=== PATIENT | female | born 1990 | race Caucasian/White ===

== ENCOUNTER 2022-09-01 09:58 | Inpatient (IN) | payer BC ==
[2022-08-31 12:09] LABS: Hemoglobin 11.9 g/dL (12.0-15.5); Platelet Count 311 10x3/uL (150-450)
[2022-08-31 12:41] LABS: HBSAg Index 0.15 S/CO (0-0.99); Hep B Surf Ag Non-Reactive S/CO (NonReactive)
[2022-08-31 12:42] LABS: Syphilis Antibody Nonreactive (Nonreactive); Syphilis Antibody Index 0.03 S/CO (<1.00 Non-Reactive)
[2022-09-01] MEDS ORDERED: HYDROmorphone 2 MG/ML VIAL SLOW IVP PRN (10:22)
[2022-09-01] MEDS ORDERED: Meperidine HCl/PF 25 MG/ML VIAL SLOW IVP PRN (10:22)
[2022-09-01] MEDS ORDERED: Fentanyl 100 MCG/2 ML VIAL SLOW IVP PRN (10:22)
[2022-09-01] MEDS ORDERED: Ondansetron HCl/PF 4 MG/2 ML Vial IVP PRN (10:22)
[2022-09-01] MEDS ORDERED: Promethazine HCl 25 MG/ML VIAL IM PRN ×2 (10:23→10:24)
[2022-09-01] MEDS ORDERED: Moisturizing Cream (Eucerin) 113 GM JAR TOP PRN (10:23)
[2022-09-01] MEDS ORDERED: diphenhydrAMINE 50 MG/ML VIAL IVP PRN (10:23)
[2022-09-01] MEDS ORDERED: Ondansetron PF 4 MG/2 ML Vial IVP PRN ×2 (10:23→10:24)
[2022-09-01] MEDS ORDERED: Promethazine HCl 25 MG SUPP PR PRN (10:23)
[2022-09-01] MEDS ORDERED: Naloxone HCl 0.4 mg/ml Vial IV PRN (10:23)
[2022-09-01] MEDS ORDERED: Naloxone HCl 0.4 mg/ml Vial IVP PRN ×2 (10:23)
[2022-09-01] MEDS ORDERED: Diphenoxylate HCl/Atropine Tablet PO PRN ×2 (10:24)
[2022-09-01] MEDS ORDERED: Bicitra 30 ML UDCUP PO PRN (10:24)
[2022-09-01] MEDS ORDERED: NS w/ Oxytocin 30 units 500 ML IV SCH (10:24)
[2022-09-01] MEDS ORDERED: Acetaminophen 500 MG TAB PO PRN (10:24)
[2022-09-01] MEDS ORDERED: Tranexamic Acid 1,000 MG/10 ML VIAL IVP PRN (10:24)
[2022-09-01] MEDS ORDERED: Carboprost 250 MCG/ML AMP IM PRN (10:24)
[2022-09-01] MEDS ORDERED: hydrALAZINE 20 MG/ML VIAL SLOW IVP PRN ×2 (10:24→12:45)
[2022-09-01] MEDS ORDERED: Misoprostol 200 MCG TAB PR PRN (10:24)
[2022-09-01] MEDS ORDERED: Famotidine/PF 20 mg/2ml Vial SLOW IVP PRN (10:24)
[2022-09-01] MEDS ORDERED: CEFAZOLIN 2 GM in Sodium Chloride 0.9% 100 ML IVPB SCH (10:24)
[2022-09-01 10:29] VITALS: BMI 41.1
[2022-09-01] MEDS ORDERED: Communication Order-Pharmacy FS SCH (10:30)
[2022-09-01] MEDS ORDERED: Ketorolac Tromethamine 30 MG/ML VIAL IVP SCH (10:30)
[2022-09-01] MEDS ORDERED: fentaNYL 50 mcg/mL 1 mL Vial ONE (11:04)
[2022-09-01] MEDS ORDERED: Dexamethasone 4 mg/ml Vial ONE (11:04)
[2022-09-01] MEDS ORDERED: Ondansetron PF 4 MG/2 ML Vial ONE (11:04)
[2022-09-01] MEDS ORDERED: Morphine PF 10 MG/10 ML VIAL ONE (11:04)
[2022-09-01] MEDS ORDERED: Oxytocin 10 UNITS/ML VIAL ONE (11:04)
[2022-09-01] MEDS ORDERED: Bisacodyl 10 MG SUPP PR PRN (12:45)
[2022-09-01] MEDS ORDERED: diphenhydrAMINE 25 MG CAP PO PRN (12:45)
[2022-09-01] MEDS ORDERED: Simethicone Chewable 80 MG TAB PO PRN (12:45)
[2022-09-01] MEDS ORDERED: Lanolin Ointment 7 GM TUBE TOP PRN (12:45)
[2022-09-01] MEDS ORDERED: Acetaminophen 325 MG TAB PO PRN (12:45)
[2022-09-01] MEDS ORDERED: Boostrix 0.5 ML (Tdap) VIAL (>/=7 yrs of age) IM ONE (12:45)
[2022-09-01] MEDS: Ketorolac Tromethamine 30 MG/ML VIAL IVP PRN ×2 (14:33→22:24)
[2022-09-01] MEDS: Lactated Ringer's 1,000 ML IV SCH ×2 (16:52→23:16)
[2022-09-01] MEDS: Ferrous Sulfate 325 MG TAB PO SCH (19:07)
[2022-09-01] MEDS: Docusate 100 MG CAP PO SCH (21:08)
[2022-09-01] MEDS ORDERED: HYDROcodone/Acetaminophen 5/325 mg Tablet PO PRN ×2 (22:30)
[2022-09-02 04:44] LABS: Hemoglobin 10.4 g/dL (12.0-15.5); Mean Corpuscular HGB CONC 33.1 g/dL (32.0-36.0); Mean Corpuscular Hemoglobin 28.5 pg (27.0-33.0); Mean Platelet Volume 10.8 fl (7.4-10.4); Platelet Count 268 10x3/uL (150-450); RBC Distribution Width 13.8 % (11.5-14.5); Red Blood Cell (RBC) Count 3.65 10x6/uL (3.90-5.03); White Blood Cell (WBC) Count 11.1 10x3/uL (3.5-10.5)
[2022-09-02] MEDS: Ferrous Sulfate 325 MG TAB PO SCH ×2 (07:22→19:45)
[2022-09-02] MEDS: Prenatal Vitamin 1 TAB PO SCH (08:14)
[2022-09-02] MEDS: Docusate 100 MG CAP PO SCH ×2 (08:14→21:44)
[2022-09-02] MEDS: Ibuprofen 800 MG TAB PO SCH ×2 (13:54→21:45)
[2022-09-02] MEDS: Lactated Ringer's 1,000 ML IV SCH ×2 (16:20→19:45)
[2022-09-03] MEDS: Ibuprofen 800 MG TAB PO SCH ×3 (05:54→21:35)
[2022-09-03] MEDS: Ferrous Sulfate 325 MG TAB PO SCH ×2 (07:27→21:38)
[2022-09-03] MEDS: Docusate 100 MG CAP PO SCH ×2 (08:35→21:35)
[2022-09-03] MEDS: Prenatal Vitamin 1 TAB PO SCH (08:35)
[2022-09-03] MEDS: Lactated Ringer's 1,000 ML IV SCH ×2 (16:04→19:07)
[2022-09-04] MEDS: Ibuprofen 800 MG TAB PO SCH (05:28)
[2022-09-04] MEDS: Lactated Ringer's 1,000 ML IV SCH ×2 (05:30→07:59)
[2022-09-04] MEDS: Ferrous Sulfate 325 MG TAB PO SCH (07:57)
[2022-09-04] MEDS: Docusate 100 MG CAP PO SCH (08:22)
[2022-09-04] MEDS: Prenatal Vitamin 1 TAB PO SCH (08:22)
[2022-09-04 12:03] VITALS: BP 149/85; TEMP 98.2
== END 2022-09-04 12:55 | disposition home or self-care (01) | DRG 788 ==
LOC: CSHLD 09:58 → CSHPP 16:27
PROVIDERS: ADMIT Obstetrics & Gynecology; ATTEND Obstetrics & Gynecology
PROC: 10D00Z1 Extraction of Products of Conception, Low, Open Approach (ICD-10-PCS; principal; 2022-09-01)
DX: O34.211 Maternal care for low transverse scar from previous cesarean delivery (principal); Z3A.37 37 weeks gestation of pregnancy; O14.04 Mild to moderate pre-eclampsia, complicating childbirth; Z37.0 Single live birth; O24.420 Gestational diabetes mellitus in childbirth, diet controlled; O99.344 Other mental disorders complicating childbirth; O99.284 Endocrine, nutritional and metabolic diseases complicating childbirth; E28.2 Polycystic ovarian syndrome; F41.9 Anxiety disorder, unspecified; O99.52 Diseases of the respiratory system complicating childbirth; J45.909 Unspecified asthma, uncomplicated; Z79.82 Long term (current) use of aspirin; Z98.890 Other specified postprocedural states; Z91.018 Allergy to other foods; Z79.899 Other long term (current) drug therapy
CPT/HCPCS: 36415; 51702; 85014; 85018; 85027; 85049; 86780; 86850; 86900; 86901; 87340; J1100; J1885; J2274; J2405; J2590; J3010